=== PATIENT | female | born 1995 | race Caucasian/White ===

== ENCOUNTER 2018-05-17 10:16 | Emergency (ER) | payer MEDICAID ==
[~2018-05-17] VITALS: Ht 172.7 cm; Wt 109.1 kg
[2018-05-17 10:32] VITALS: BP 120/77
[2018-05-17] MEDS ORDERED: SULF1TAB49 PO (10:51)
[2018-05-17] MEDS ORDERED: ibuprofen tablet 400 MG TABLET PO ONE (11:05)
[2018-05-17] MEDS ORDERED: IBUP-1984 PO (11:06)
== END 2018-05-17 11:14 | disposition home or self-care (01) ==
LOC: ER 10:16
DX: L03.115 Cellulitis of right lower limb (principal); J02.9 Acute pharyngitis, unspecified; R05 Cough; F12.90 Cannabis use, unspecified, uncomplicated; F15.90 Other stimulant use, unspecified, uncomplicated; F11.90 Opioid use, unspecified, uncomplicated
CPT/HCPCS: 99283

== ENCOUNTER 2018-07-10 01:40 | Emergency (ER) | payer MEDICAID ==
[~2018-07-10] VITALS: Ht 172.7 cm; Wt 110.0 kg
[2018-07-10 01:41] VITALS: BP 150/74
[2018-07-10] MEDS ORDERED: LIDOcaine 1.5% w/epinephrine 1:200,000 5ml ampul IJ ONE (01:45)
[2018-07-10] MEDS ORDERED: TETanus/Pertussis (Acell)/Diphther VAC/PF (Tdap-Adult) 0.5ml syringe IM ONE (01:45)
[2018-07-10] MEDS ORDERED: epiNEPHrine inj 0.3 MG in LIDOcaine 1% 30ml vial 29.7 ML IJ ONE (01:55)
[2018-07-10] MEDS ORDERED: LIDOcaine 1% w/epiNEPHrine 1:200,000 30ml vial SQ ONE (02:00)
--- NOTE | 2018-07-10 02:01 | NUR ---
PT YELLING OUT TO STAFF "WHY CAN'T I GO OUTSIDE TO GET SOME AIR?" "THIS IS SO STUPID" - PT ADVISED IT IS AGAINST POLICY TO BE OUTSIDE A PATIENT UNATTENDED.
== END 2018-07-10 02:50 | disposition home or self-care (01) ==
LOC: ER 01:40
DX: S01.112A Laceration without foreign body of left eyelid and periocular area, initial encounter (principal); F12.90 Cannabis use, unspecified, uncomplicated; F15.90 Other stimulant use, unspecified, uncomplicated; F11.90 Opioid use, unspecified, uncomplicated; Z86.14 Personal history of Methicillin resistant Staphylococcus aureus infection; W22.8XXA Striking against or struck by other objects, initial encounter; Y93.89 Activity, other specified; Y92.009 Unspecified place in unspecified non-institutional (private) residence as the place of occurrence of the external cause; Y99.8 Other external cause status
CPT/HCPCS: 12011; 90471; 90715; 99283; J3490

== ENCOUNTER 2022-01-08 18:42 | Emergency (ER) | payer MEDICAID ==
[~2022-01-08] VITALS: Ht 172.7 cm; Wt 116.9 kg
[2022-01-08 18:49] VITALS: BP 151/90
[2022-01-08] MEDS ORDERED: CLIN300C63 PO (21:17)
[2022-01-08] MEDS ORDERED: clindamycin 150mg capsule PO SCH (21:30)
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
== END 2022-01-08 21:37 | disposition home or self-care (01) ==
LOC: ER 18:43
DX: F15.10 Other stimulant abuse, uncomplicated (principal); M79.601 Pain in right arm; F12.10 Cannabis abuse, uncomplicated; F11.10 Opioid abuse, uncomplicated
CPT/HCPCS: 99283

== ENCOUNTER 2022-04-22 23:14 | Emergency (ER) | payer MEDICAID ==
[~2022-04-22] VITALS: Ht 175.3 cm; Wt 120.5 kg
[2022-04-22 23:20] VITALS: BP 127/72
[2022-04-22] MEDS ORDERED: azithromycin 250mg tablet PO ONE (23:40)
[2022-04-22] MEDS ORDERED: CefTRIAXone 1000mg IM Kit (w/lidocaine diluent) IM ONE (23:45)
[2022-04-22] MEDS ORDERED: CEFTRIAXONE 500 MG VIAL IM ONE (23:55)
[2022-04-23 00:04] LABS: HCG SERUM QL NEGATIVE
[2022-04-23] MEDS ORDERED: DOXY100C43 PO (00:06)
[2022-04-23] MEDS ORDERED: ketorolac trometh. 30mg/ml inj. IM ONE (00:30)
== END 2022-04-23 00:58 | disposition home or self-care (01) ==
LOC: ER 23:17
DX: N76.0 Acute vaginitis (principal); F15.10 Other stimulant abuse, uncomplicated; F41.9 Anxiety disorder, unspecified; F12.10 Cannabis abuse, uncomplicated; F11.10 Opioid abuse, uncomplicated; Z86.14 Personal history of Methicillin resistant Staphylococcus aureus infection
CPT/HCPCS: 36415; 84703; 99284

== ENCOUNTER 2022-05-31 09:06 | Emergency (ER) | payer MEDICAID | END 2022-05-31 10:23 | disposition left against medical advice (07) | LOC: ER 09:07 | DX: L02.91 Cutaneous abscess, unspecified (principal); Z53.21 Procedure and treatment not carried out due to patient leaving prior to being seen by health care provider ==

== ENCOUNTER 2022-08-13 01:58 | Emergency (ER) | payer MEDICAID ==
[~2022-08-13] VITALS: Ht 172.7 cm; Wt 118.2 kg
--- NOTE | 2022-08-13 02:45 | NUR ---
UNABLE TO TRIAGE - PATIENT IN RESTROOM.
--- NOTE | 2022-08-13 08:55 | NUR ---
call to [facility] substance abuse coordinator, left message.
--- NOTE | 2022-08-13 10:34 | NUR ---
Pt ambulated up to the bathroom.
--- NOTE | 2022-08-13 10:55 | NUR ---
Repeatedly tried to call phone numbers listed in pt charts. Phone number is not available.
[2022-08-13 11:00] VITALS: BP 113/66
--- NOTE | 2022-08-13 11:15 | NUR ---
Pt was able to call her mom and she was provided with a Taxi home.
--- NOTE | 2022-08-16 10:20 | NUR ---
Received order for consult. Patient discharged. Called patient and left message for her to call me back.
== END 2022-08-13 11:16 | disposition home or self-care (01) ==
LOC: ER 01:59
DX: R07.89 Other chest pain (principal); F19.10 Other psychoactive substance abuse, uncomplicated; F41.9 Anxiety disorder, unspecified; F17.200 Nicotine dependence, unspecified, uncomplicated; F12.90 Cannabis use, unspecified, uncomplicated; F15.90 Other stimulant use, unspecified, uncomplicated; Z86.14 Personal history of Methicillin resistant Staphylococcus aureus infection; Z72.89 Other problems related to lifestyle
CPT/HCPCS: 71046; 93005; 99283